=== PATIENT | female | born 1975 | race American Indian/Alaskan Native ===

== ENCOUNTER 2017-06-10 11:32 | Outpatient (CLI) | payer OTHER ==
--- NOTE | 2017-06-10 15:13 | Mammography Report ---
BILATERAL DIGITAL SCREENING MAMMOGRAM with CAD: 06/10/17 11:32:00 CLINICAL: Routine screening. COMPARISON:05/07/16 FINDINGS: The breasts are heterogeneously dense, which may obscure small masses. No mass, architectural distortion or suspicious calcifications. IMPRESSION: No mammographic evidence of malignancy. BI-RADS CATEGORY: 1 - - Negative RECOMMENDATION: Routine mammographic screening in one year. COMMENT: Patient follow-up letters are generated by our [employer] application.
== END 2017-06-10 11:33 | disposition home or self-care (01) ==
LOC: SPVWC 11:32
PROVIDERS: ATTEND Obstetrics & Gynecology
DX: Z12.31 Encounter for screening mammogram for malignant neoplasm of breast (principal)
CPT/HCPCS: 77067; G0202

== ENCOUNTER 2019-03-27 14:39 | Emergency (ER) | payer BC, OTHER ==
[2019-03-27 15:33] LABS: Bilirubin,Urine NEG (Negative); Blood,Urine NEG (Negative); Color,Urine Yellow (Yellow); Mucus,Urine FEW /HPF; Protein,Urine <15 mg/dL mg/dL (Negative); Urobilinogen,Urine < 2.0 mg/dL (<2.0)
[2019-03-27 15:34] LABS: WBC,Urine > 182.0 /HPF (0.0-6.0)
[2019-03-27] MEDS ORDERED: LEVAQUIN 750MG/150ML 750 MG/150 ML BAG IV ONE (15:38)
[2019-03-27 15:55] LABS: Basophils % (Auto) 0.3 % (0.0-1.8); Eosinophils % (Auto) 0.2 % (0.0-4.3); Hematocrit 35.4 % (30.3-42.9); Hemoglobin 11.8 gm/dl (10.1-14.3); Lymphocytes # (Auto) 0.6 K/mm3 (1.2-5.4); Mean Corpuscular HGB Conc 33 % (30-34); Mean Corpuscular Volume 88 fl (79-97); Monocytes # (Auto) 0.9 K/mm3 (0.0-0.8); Monocytes % (Auto) 8.5 % (0.0-7.3); Platelet Count 248 K/mm3 (140-440); Red Blood Count 4.04 M/mm3 (3.65-5.03); Red Cell Distribution Width 13.9 % (13.2-15.2)
[2019-03-27] MEDS ORDERED: NACL 0.9% 500 ML 500 ML IV ONE (16:17)
[2019-03-27 16:30] LABS: Alanine Aminotransferase 11 units/L (7-56); Albumin 3.6 g/dL (3.9-5); BUN/Creatinine Ratio 9; Blood Urea Nitrogen 8 mg/dL (7-17); Calcium 8.9 mg/dL (8.4-10.2); Hemolysis Index 7
--- NOTE | 2019-03-27 16:43 | Emergency Department Report ---
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 She was found to have a fever of 102F and then was redirected to the emergency department. She denies any past medical history. She has not taken anything for her symptoms prior to arrival. No past medical history. The patient goes to [facility] for her primary care needs. No recent travel. ED Past Medical Hx - Past Medical History Previous Medical History?: No - Surgical History Past Surgical History?: No - Social History Smoking Status: Never Smoker - Medications Home Medications: Home Medications Medication Instructions Recorded Confirmed Last Taken Type Ciprofloxacin HCl [Ciprofloxacin 500 mg PO Q12HR #14 tab 03/27/19 Unknown Rx TAB] HYDROcodone/APAP 5-325 [[place] 1 each PO Q6HR PRN #10 tablet 03/27/19 Unknown Rx 5/325] ED Review of Systems ROS: Stated complaint: R FLANK PAIN Other details as noted in HPI Comment: All other systems reviewed and negative Constitutional: fever. denies: weakness Eyes: denies: eye pain, vision change ENT: denies: ear pain, throat pain Respiratory: denies: cough, shortness of breath Cardiovascular: denies: chest pain, palpitations Gastrointestinal: abdominal pain (right flank). denies: vomiting Genitourinary: dysuria. denies: discharge Musculoskeletal: back pain. denies: arthralgia Skin: denies: rash, lesions Neurological: denies: headache, weakness Physical Exam - Physical Exam Vital Signs: Vital Signs 03/27/19 03/27/19 14:56 14:57 Temperature 100.3 F H Pulse Rate 101 H Respiratory 18 18 Rate Blood Pressure 134/75 [Left] O2 Sat by Pulse 98 98 Oximetry Physical Exam: GENERAL: The patient is well-developed well-nourished. HENT: Normocephalic. Atraumatic. Patient has moist mucous membranes. EYES: Extraocular motions are intact. NECK: Supple. Trachea is midline. CHEST/LUNGS: Clear to auscultation. There is no respiratory distress noted. HEART/CARDIOVASCULAR: Regular. There is no tachycardia. There is no murmur. ABDOMEN: Abdomen is soft, nontender. Patient has normal bowel sounds. There is no abdominal distention. SKIN: Skin is warm and dry. NEURO: The patient is awake, alert, and oriented. The patient is cooperative. The patient has no focal neurologic deficits. The patient has normal speech. MUSCULOSKELETAL: There is no tenderness or deformity. There is no limitation range of motion. There is no evidence of acute injury. BACK: No midline thoracic or lumbar tenderness to palpation, step-off or defo rmity. There is some right-sided CVA tenderness to palpation. ED Course Vital Signs 03/27/19 03/27/19 14:56 14:57 Temperature 100.3 F H Pulse Rate 101 H Respiratory 18 18 Rate Blood Pressure 134/75 [Left] O2 Sat by Pulse 98 98 Oximetry ED Medical Decision Making - Lab Data Result diagrams: 03/27/19 15:27 03/27/19 15:27 - Radiology Data Radiology results: report reviewed right flank pain, UTI, pyelonephritis. COMPARISON: No relevant prior imaging study available. FINDINGS: RIGHT KIDNEY: Size: 9.8 cm. Echogenicity: Normal. Cortical thickness: Normal. Hydronephrosis: None. Cyst or mass: 2.1 x 1.7 x 2.9 cm cyst in the upper pole.. Stones: None. . Urinary Bladder: No significant abnormality. Free Fluid: None. Additional Findings: None. IMPRESSION 1. No acute sonographic abnormality of the right kidney. - Medical Decision Making This patient was sent by [facility] [employer] after she complained of some flank pain and back pain and was found to have a fever. She did have a slight fever in the emergency department and very mild tachycardia. The blood work was unrema rkable but the urinalysis does show significant urinary tract infection. Renal ultrasound was done that does not show any signs of any hydronephrosis, nephrolithiasis or any other acute process. All of these patient's symptoms appear consistent with pyelonephritis. She was placed on antibiotics and written for some pain medication for home. Vital signs improved with some Toradol and IV fluid. She will return to the ER with any worsening of her symptoms or any acute distress. - Differential Diagnosis UTI, pyelonephritis, nephrolithiasis, sepsis Critical Care Time: No Critical care attestation.: If time is entered above; I have spent that time in minutes in the direct care of this critically ill patient, excluding procedure time. ED Disposition Clinical Impression: Pyelonephritis Fever Qualifiers: Fever type: unspecified Qualified Code(s): R50.9 - Fever, unspecified UTI (urinary tract infection) Qualifiers: Urinary tract infection type: acute cystitis Hematuria presence: without hematuria Qualified Code(s): N30.00 - Acute cystitis without hematuria Disposition: TO HOME OR SELFCARE Is pt being admited?: No Condition: Stable Instructions: Urinary Tract Infection in Women (ED), Fever in Adults (ED), Acute Pyelonephritis (ED) Additional Instructions: Please follow-up with your primary care physician in the next few days. Return to the emergency Department with any worsening of your symptoms or any acute distress. You have been prescribed a medication that is sedating and therefore should not be taken prior to driving, working, and responsible for children and in no way should be mixed with alcohol of any quantity. Prescriptions: Ciprofloxacin HCl [Ciprofloxacin TAB] 500 mg PO Q12HR #14 tab HYDROcodone/APAP 5-325 [[place] 5/325] 1 each PO Q6HR PRN #10 tablet PRN Reason: Pain Referrals: PRIMARY CARE,MD [Primary Care Provider] - 2-3 Days Forms: Work/School Release Form(ED) Time of Disposition: 20:11
[2019-03-27] MEDS: TORADOL IV ONE ×2 (16:48→19:34)
[2019-03-27] MEDS ORDERED: TORADOL ONE (19:05)
--- NOTE | 2019-03-27 19:56 | Ultrasound Report ---
Limited renal ultrasound of the right kidney INDICATION: right flank pain, UTI, pyelonephritis. COMPARISON: No relevant prior imaging study available. FINDINGS: RIGHT KIDNEY: Size: 9.8 cm. Echogenicity: Normal. Cortical thickness: Normal. Hydronephrosis: None. Cyst or mass: 2.1 x 1.7 x 2.9 cm cyst in the upper pole.. Stones: None. . Urinary Bladder: No significant abnormality. Free Fluid: None. Additional Findings: None. IMPRESSION 1. No acute sonographic abnormality of the right kidney. Signer Name: Tevin Pastrana MD Signed: 03/27/2019 7:51 PM Workstation Name: [id number]
[2019-03-27 20:19] VITALS: BP 95/52
== END 2019-03-27 20:20 | disposition home or self-care (01) ==
LOC: ED 14:39
DX: N12 Tubulo-interstitial nephritis, not specified as acute or chronic (principal); N39.0 Urinary tract infection, site not specified
CPT/HCPCS: 36415; 76775; 80053; 81001; 85025; 96365; 96366; 96375; 99284; J1885; J1956; J7040

== ENCOUNTER 2019-07-24 07:21 | Outpatient (CLI) | payer BC ==
--- NOTE | 2019-07-24 08:55 | Ultrasound Report ---
ULTRASOUND ABDOMEN, COMPLETE INDICATION: RIGHT LOWER QUADRANT ABDOMINAL PAIN. COMPARISON: None available. FINDINGS: Pancreas: Normal. Abdominal Aorta: Normal. IVC: Normal. Liver: Normal. Gallbladder: Normal. Bile ducts: Normal. Common Bile Duct measures 2.3 mm. Right Kidney: Contains a 2.2 x 2.1 x 2.8 cm cyst in the upper pole. Left Kidney: Normal. Spleen: Normal. Free fluid: None. Additional Findings: None. IMPRESSION: 1. Right renal cyst. Otherwise negative study. Signer Name: Tevin Pastrana MD Signed: 07/24/2019 8:51 AM Workstation Name: [id number]
--- NOTE | 2019-07-24 08:57 | Ultrasound Report ---
Transabdominal pelvic ultrasound INDICATION: Right lower quadrant pain FINDINGS: Uterus measures 8.3 x 5.6 x 5.3 cm. Endometrial stripe is thickened at 2.1 cm. Uterus other chappell appears normal. The right ovary measures 2.8 x 2.5 x 2.3 cm and contains a 1.9 x 1.[address] Left ovary measures 2.2 x 2.1 x 2 cm and appears normal. No free fluid. IMPRESSION: 1. Right ovarian cyst. 2. Thickened endometrial stripe Signer Name: Tevin Pastrana MD Signed: 07/24/2019 8:52 AM Workstation Name: [id number]
[2019-07-24 08:59] LABS: Basophils # (Auto) 0.1 K/mm3 (0.0-0.1); Basophils % (Auto) 1.3 % (0.0-1.8); Eosinophils # (Auto) 0.1 K/mm3 (0.0-0.4); Eosinophils % (Auto) 1.8 % (0.0-4.3); Hemoglobin 13.5 gm/dl (10.1-14.3); Lymphocytes # (Auto) 2.6 K/mm3 (1.2-5.4); Lymphocytes % (Auto) 44.7 % (13.4-35.0); Mean Corpuscular HGB Conc 33 % (30-34); Mean Corpuscular Volume 88 fl (79-97); Monocytes # (Auto) 0.4 K/mm3 (0.0-0.8); Monocytes % (Auto) 6.7 % (0.0-7.3); Platelet Count 310 K/mm3 (140-440); Red Blood Count 4.68 M/mm3 (3.65-5.03); Red Cell Distribution Width 14.3 % (13.2-15.2)
[2019-07-24 09:09] LABS: Alanine Aminotransferase 9 units/L (7-56); Albumin 4.5 g/dL (3.9-5); BUN/Creatinine Ratio 10; Blood Urea Nitrogen 8 mg/dL (7-17); Calcium 9.5 mg/dL (8.4-10.2); Hemolysis Index 8; LDL Cholesterol,Direct 86 mg/dL (50-130)
[2019-07-24 09:27] LABS: Chol/HDL Ratio 2.35 %; HDL Cholesterol 65 mg/dL (40-59)
--- NOTE | 2019-07-24 15:39 | Mammography Report ---
DIGITAL SCREENING MAMMOGRAM WITH CAD, 07/24/2019 INDICATION: Routine screening mammography. TECHNIQUE: Digital bilateral 2D mammography was obtained in the craniocaudal and mediolateral obliq ue projections. This examination was interpreted with the benefit of Computer-Aided Detection analysi s. COMPARISON: 06/10/2017 FINDINGS: Breast Density: The breasts are heterogeneously dense, which may obscure small masses. Left asymmetries require additional imaging. No architectural distortion or suspicious calcifications of the left breast. There is no evidence of dominant mass, suspicious calcifications or architectura l distortion in the right breast. IMPRESSION: Left asymmetries requiring additional imaging. Recommend recall for left spot compression views and left breast ultrasound if needed. Follow up recommendation: Special View: Spot Category 0: Incomplete. Needs additional imaging evaluation and/or prior mammograms for comparison. A "normal" or negative report should not discourage follow up or biopsy of a clinically significant f inding. A written summary of these findings will be mailed to the patient. The patient will be entered into a mammography reporting system which will generate a reminder letter for the patient's next appointmen t at the appropriate interval. The [employer] recommends yearly mammograms starting at age 40 and continuing as l estela as a woman is in good health. Breast MRI is recommended for women with an approximate 20-25% or greater lifetime risk of breast cancer, including women with a strong family history of breast or ova jj cancer or who have been treated for Hodgkin's disease. Signer Name: Leopoldo Barragan MD Signed: 07/24/2019 3:35 PM Workstation Name: [id number]
== END 2019-07-24 07:22 | disposition home or self-care (01) ==
LOC: US 07:21
PROVIDERS: ATTEND Internal Medicine
DX: Z00.00 Encounter for general adult medical examination without abnormal findings (principal); Z12.31 Encounter for screening mammogram for malignant neoplasm of breast; N83.201 Unspecified ovarian cyst, right side; R53.83 Other fatigue; R53.81 Other malaise; R10.31 Right lower quadrant pain
CPT/HCPCS: 36415; 76700; 76856; 77067; 80053; 80061; 84443; 85025